=== PATIENT | male | born 2000 | race Caucasian/White ===

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

== ENCOUNTER 2022-01-31 01:47 | Emergency (ER) | payer SELFPAY ==
[~2022-01-31] VITALS: Ht 175.3 cm; Wt 94.1 kg
[~2022-01-31 01:47] MED LIST: ETOMIDATE 40 MG/20 ML VIAL. ONE; MIDAZOLAM HCL PF 5 MG/5 ML VIAL. ONE
[2022-01-31] MEDS ORDERED: NALOXONE 2 MG/2 ML DISP.SYRIN. IV ONE ×2 (02:30→03:00)
[2022-01-31] MEDS ORDERED: IV RINGERS SOLUTION,LACTATED 1,000 ML IV SCH (02:45)
[2022-01-31] MEDS ORDERED: PROPOFOL 100 ML IV PRN (02:45)
--- NOTE | 2022-01-31 02:53 | PHYS DOC ---
Past History Past Medical History: Asthma Additional Past Medical Histor: UNKNOWN Past Surgical History: Other Additional Past Surgical Histo: UNKNOWN Smoking: Cigarettes Alcohol Use: Occasionally Drug Use: None General Adult EDM: Chief Complaint: ALTERED MENTAL STATUS HPI: HPI: Non- resposive Patient is a 21 year old male who presents with marked decreased level of r responsiveness. Patient found down on a porch. Unknown length of time outside. Patient suspected to have an overdose of narcotics. Patient given 2 of Narcan nasally in the field as well as additional 4 given in the ED. Patient failed to have adequate response to return to level consciousness and not protecting airway. Patient intubated with 7 .5 ET tube. Patient then had OG placed decompress stomach. Patient placed on a propofol drip to complete CT of head and obtain chest x-ray. Patient appeared to have multiple IV stick méndez and old IV sticks. Considerable difficulty in obtaining IV and eventually had intraosseous right tib. Patient eventually obtained a left subclavian triple- lumen for IV access. Very limited history initially available on patient. Review of Systems: Review of Systems: Non-responsive Family History: Family History: Not currently available Current Medications: Current Meds: Current Medications Medications (Trade) Dose Ordered Sig/Benjamín Start Time Stop Time Status Last Admin Dose Admin Lactated Ringer's 1,000 ml @ 1,000 mls/hr Q1H 01/31/22 02:45 01/31/22 03:44 Naloxone HCl (Narcan) 2 mg 1X ONCE 01/31/22 02:30 01/31/22 02:31 DC 01/31/22 01:51 2 MG Propofol 100 ml @ 1.412 mls/ hr CONT PRN 01/31/22 02:45 Allergies: Allergies: Allergies Coded Allergies Type Severity Reaction Last Updated Verified dextromethorphan Allergy Mild 06/06/18 Yes Physical Exam: PE: Constitutional: in acute distress, non-toxic appearance. [] HENT: Normocephalic, atraumatic, bilateral external ears normal, oropharynx moist, no oral exudates, nose injected turbinates Eyes: PERRLA, constricted pupils, conjunctiva injected, no discharge. [] Neck: Normal range of motion, no tenderness, supple, no stridor. [] Trachea midline Cardiovascular: Tachycardia heart rate regular rhythm, no murmur [] Lungs & Thorax: Bilateral breath sounds rhonchi and crackles in both lung ace on auscultation [] Abdomen: Bowel sounds decreased, soft, no tenderness, no masses, no pulsatile masses. [] Circumcised male Skin: Warm, cold, decreased capillary refill toes and fingers, no erythema, no rash. Tattoos. Appeared to have IV track méndez Back: No tenderness, no CVA tenderness. [] Extremities: No tenderness, no cyanosis, no clubbing, ROM intact, no edema. [] Neurologic: Responds only to pain,, did appear to move all extremities with noxious stimuli, no gag reflex Current Patient Data: Vital Signs: Vital Signs Date Time Temp Pulse Resp B/P (MAP) Pulse Ox O2 Delivery O2 Flow Rate FiO2 01/31/22 02:09 73 19 175/104 (127) 95 Ventilator 01/31/22 01:59 15.0 01/31/22 01:47 95.5 EKG: EKG: My interpretation EKG shows a sinus rhythm at 87 bpm. Does have some contour changes anterior lateral area. Abnormal EKG. But no findings of acute STEMI with contralateral changes. Time of EKG is 331 hours [] Radiology/Procedures: Radiology/Procedures: [address] [address] IMAGING REPORT Signed PATIENT: BUD AMARAL ACCOUNT: [id number] : 2000 LOCATION: ER AGE: 21 SEX: M EXAM STATUS: REG ER ORD. PHYSICIAN: THOMAS GARCIA MD REASON: intubation, OG tube and central line placement. OD PROCEDURE: CHEST AP ONLY EXAMINATION: Chest radiograph. VIEWS: 1 COMPARISON: None. INDICATION:21 years, Male, Intubation, placement of enteric tube and central venous catheter. FINDINGS: Normal cardiomediastinal silhouette. Diffuse bilateral perihilar pulmonary infiltrates. No pleural effusion or pneumothorax. No acute osseous process. Endotracheal tube tip locates approximately 4.6 cm proximal to the benjamin. Enteric tube tip and sidehole seen within the stomach. Left central venous catheter terminates in the mid SVC IMPRESSION: 1. Endotracheal tube tip locates approximately 4.6 cm proximal to the benjamin. 2. Diffuse bilateral perihilar pulmonary infiltrates. Differential includes pulmonary edema versus atypical infection. Electronically signed by: Ramakrishna Killian MD (01/31/2022 3:40 AM) [facility] DICTATED AND SIGNED BY: RAMAKRISHNA KILLIAN MD DATE: 01/31/22337 CC: THOMAS GARCIA MD; PCP,UNKNOWN ~MTH0 0 [][place] [address] IMAGING REPORT Signed PATIENT: BUD AMARAL ACCOUNT: [id number] : 2000 LOCATION: ER AGE: 21 SEX: M EXAM STATUS: REG ER ORD. PHYSICIAN: THOMAS GARCIA MD REASON: OD, Mental status change PROCEDURE: CT HEAD AND CERVICAL SPINE WO EXAMINATION: CT head and cervical spine without IV contrast. INDICATION:21 years, Male, mental status change. COMPARISON: None TECHNIQUE: Spiral acquisition of contiguous images from the skull base to the vertex were obtained. CT of the cervical spine was obtained using contiguous spiral imaging from the skull base to the upper thoracic level. Sagittal and coronal 2D reformatted series were provided by the technologist. Soft tissue and bone window algorithms were reviewed. Exposure: One or more of the following individualized dose reduction techniques were utilized for this examination: 1. Automated exposure control 2. Adjustment of the mA and/or kV according to patient size 3. Use of iterative reconstruction technique. FINDINGS: Suboptimal exam due to motion artifact. CT HEAD: Neither mass, midline shift, intracranial hemorrhage, acute/subacute ischemic changes, nor extraaxial fluid collections are seen. The paranasal sinuses, mastoid air cells, and middle ears are clear. The orbital contents appear within normal limits. CT CERVICAL SPINE: Anatomic alignment of the cervical spine is maintained. Neither fracture, subluxation, nor traumatic spondylolisthesis is seen. The vertebral body heights and intervertebral disk spaces are preserved. There is no evidence of a large intraspinal hematoma. The prevertebral and paravertebral soft tissues are within normal limits. Partially visualized endotracheal and enteric tubes. IMPRESSION: 1. Suboptimal exam due to motion artifact. 2. No acute intracranial abnormality. 3. No acute fracture of the cervical spine. Electronically signed by: Ramakrishna Killian MD (01/31/2022 3:38 AM) [facility] DICTATED AND SIGNED BY: RAMAKRISHNA KILLIAN MD DATE: 01/31/22 0334 CC: THOMAS GARCIA MD; PCP,UNKNOWN ~MTH0 0 Heart Score: C/O Chest Pain: N/A HEART Score for Chest Pain: HEART Score for Chest Pain Response (Comments) Value History Moderately Suspicious 1 ECG Nonspecific Repolarizatio 1 Age < 45 0 Risk Factors 1 or 2 Risk Factors 1 Troponin < Normal Limit 0 Total 3 Risk Factors: Risk Factors: DM, Current or recent (<one month) smoker, HTN, HLP, family history of CAD, obesity. Risk Scores: Score 0 - 3: 2.5% MACE over next 6 weeks - Discharge Home Score 4 - 6: 20.3% MACE over next 6 weeks - Admit for Clinical Observation Score 7 - 10: 72.7% MACE over next 6 weeks - Early Invasive Strategies Course & Med Decision Making: Course & Med Decision Making Pertinent Labs and Imaging studies reviewed. (See chart for details) Procedure note-s IO placed by nursing Rt tibial plateau with return of blood. Intubation-patient not protecting airway and appears to have copious amount of pulmonary edema. Need to secure airway to obtain further x-rays and CT. Patient given 100 mg of succinylcholine and 20 g of etomidate and interosseous access. Use of videoscope 7.5 ET tube placed at 24 cm at teeth. First attempt unable to visualize airway required additional suctioning. Was able to place ET tube on second attempt. ET tube tube secured with tube barber and CO2 return. ET required suction.. Breath sounds both apexes. No breath sounds over st omach. OG then placed with return of gastric fluids. Central line -need for IV access and lab draws. Multiple attempts for p eripheral lines unsuccessful by nursing. Patient left subclavian prepped with kit prep. Sterile drape, mask, gloves-a triple-lumen placed by Seldinger technique left subclavian with return of blood all [address] with Biopatch and then covered with OpSite. Post xray show adequate placement and no pneumothorax. Patient placed on propofol drip for sedation-and vent management. Pt.did require repeat dose of Versed 5 and additional succinylcholine 100, propofol to aid in obtaining CT and chest x-ray. Critical care 90 minutes charting vent management. Does not include procedures IO, OG, intubation, central line placement or Christopher placement Discussed presentation, testing and tx. plan with Dr. Payne- Transfer to [facility] his service Impression: 1. Acute Mental Status Change 2. Respiratory Failure 3. Polysubstance abuse-UDS. Positive for methamphetamine, marijuana ho wever(overall presentation consistent with street fentanyl overdose) Father of pt. eventually located-advised that no contact with son for over 5 months except called 2 or 3 days ago but then never recalled. Advised his son had a hx of polysubstance abuse. [] Dragon Disclaimer: Dragon Disclaimer: This electronic medical record was generated, in whole or in part, using a voice recognition dictation system. Departure Departure: Referrals: PCP,UNKNOWN (PCP) [place] Disclaimer This chart was dictated in whole or in part using Voice Recognition software in a busy, high-work load, and often noisy Emergency Department environment. It may contain unintended and wholly unrecognized errors or omissions. Dragon Disclaimer This chart was dictated in whole or in part using Voice Recognition software in a busy, high-work load, and often noisy Emergency Department environment. It may contain unintended and wholly unrecognized errors or omissions. THOMAS GARCIA MD Jan 31, 2022 02:53
[2022-01-31 02:59] LABS: BASO # 0.2 x10^3/uL (0.0-0.2); BASO % 1 % (0-3); EOS # 0.3 x10^3/uL (0.0-0.7); EOS % 3 % (0-3); HEMATOCRIT 45.7 % (39.0-53.0); HEMOGLOBIN 14.9 g/dL (13.0-17.5); LYMPH # 3.7 x10^3/uL (1.0-4.8); LYMPH % 29 % (24-48); MEAN CORPUSCULAR HEMOGLOBIN 31 pg (25-35); MEAN CORPUSCULAR HGB CONC 33 g/dL (31-37); MEAN CORPUSCULAR VOLUME 94 fL (79-100); MONO # 0.8 x10^3/uL (0.0-1.1); MONO % 6 % (0-9); NEUT # 7.7 x10^3uL (1.8-7.7); NEUT % 61 % (31-73); PLATELET COUNT 343 x10^3/uL (140-400); RED BLOOD COUNT 4.86 x10^6/uL (4.30-5.70); RED CELL DISTRIBUTION WIDTH 14.3 % (11.5-14.5); WHITE BLOOD COUNT 12.6 x10^3/uL (4.0-11.0)
[2022-01-31 03:10] LABS: CALCIUM 8.4 mg/dL (8.5-10.1); CREATININE 0.8 mg/dL (0.7-1.3); GFR 120.9; POTASSIUM 4.7 mmol/L (3.5-5.1)
[2022-01-31 03:14] LABS: INFLUENZA A PATIENT NEGATIVE (NEGATIVE); INFLUENZA B PATIENT NEGATIVE (NEGATIVE)
[2022-01-31 03:15] LABS: ALBUMIN 3.9 g/dL (3.4-5.0); ALBUMIN/GLOBULIN RATIO 1.2 (1.0-1.7); TOTAL BILIRUBIN 0.2 mg/dL (0.2-1.0); TOTAL PROTEIN 7.2 g/dL (6.4-8.2)
[2022-01-31 03:19] LABS: ALBUMIN 3.9 g/dL (3.4-5.0); DIRECT BILIRUBIN 0.1 mg/dL (0.0-0.2); MAGNESIUM 2.6 mg/dL (1.8-2.4); TOTAL BILIRUBIN 0.2 mg/dL (0.2-1.0); TOTAL PROTEIN 7.2 g/dL (6.4-8.2)
[2022-01-31 03:19] LABS: BACTERIA,URINE FEW /HPF (0-FEW); CLARITY,URINE CLEAR; COLOR,URINE YELLOW; GLUCOSE,URINE 500 mg/dL (NEG); NITRITE,URINE NEG (NEG); UROBILINOGEN,URINE 0.2 mg/dL (0.2 mg/dL)
[2022-01-31 03:20] LABS: HYALINE CASTS, URINE MOD /HPF; SQUAMOUS EPITHELIAL CELL,UR FEW /LPF
--- NOTE | 2022-01-31 03:41 | RAD ---
EXAMINATION: CT head and cervical spine without IV contrast. INDICATION:21 years, Male, mental status change. COMPARISON: None TECHNIQUE: Spiral acquisition of contiguous images from the skull base to the vertex were obtained. C T of the cervical spine was obtained using contiguous spiral imaging from the skull base to the upper thoracic level. Sagittal and coronal 2D reformatted series were provided by the technologist. Soft t issue and bone window algorithms were reviewed. Exposure: One or more of the following individualized dose reduction techniques were utilized for thi s examination: 1. Automated exposure control 2. Adjustment of the mA and/or kV according to patient size 3. Use of iterative reconstruction technique. FINDINGS: Suboptimal exam due to motion artifact. CT HEAD: Neither mass, midline shift, intracranial hemorrhage, acute/subacute ischemic changes, nor extraaxial fluid collections are seen. The paranasal sinuses, mastoid air cells, and middle ears are clear. Th e orbital contents appear within normal limits. CT CERVICAL SPINE: Anatomic alignment of the cervical spine is maintained. Neither fracture, subluxation, nor traumatic spondylolisthesis is seen. The vertebral body heights and intervertebral disk spaces are preserved. T here is no evidence of a large intraspinal hematoma. The prevertebral and paravertebral soft tissues are within normal limits. Partially visualized endotracheal and enteric tubes. IMPRESSION: 1. Suboptimal exam due to motion artifact. 2. No acute intracranial abnormality. 3. No acute fracture of the cervical spine. Electronically signed by: Diana Killian MD (01/31/2022 3:38 AM) [facility]
--- NOTE | 2022-01-31 03:43 | RAD ---
EXAMINATION: Chest radiograph. VIEWS: 1 COMPARISON: None. INDICATION:21 years, Male, Intubation, placement of enteric tube and central venous catheter. FINDINGS: Normal cardiomediastinal silhouette. Diffuse bilateral perihilar pulmonary infiltrates. No pleural ef fusion or pneumothorax. No acute osseous process. Endotracheal tube tip locates approximately 4.6 cm proximal to the benjamin. Enteric tube tip and sidehole seen within the stomach. Left central venous ca theter terminates in the mid SVC IMPRESSION: 1. Endotracheal tube tip locates approximately 4.6 cm proximal to the benjamin. 2. Diffuse bilateral perihilar pulmonary infiltrates. Differential includes pulmonary edema versus a typical infection. Electronically signed by: Diana Killian MD (01/31/2022 3:40 AM) [facility]
[2022-01-31 03:52] LABS: BARBITURATES NEG (NEG); BENZODIAZEPINES POS (NEG); CANNABINOIDS POS (NEG); COCAINE NEG (NEG); METHADONE NEG (NEG); OPIATES NEG (NEG); PHENCYCLIDINE NEG (NEG)
[2022-01-31 03:53] LABS: AMPHETAMINE/METHAMPHETAMINE POS (NEG)
[2022-01-31 04:53] VITALS: BP 129/80
[2022-01-31] MEDS ORDERED: MIDAZOLAM HCL PF 5 MG/5 ML VIAL. IV ONE (05:15)
--- NOTE | 2022-01-31 05:59 | EKG ---
[address] [address] Test Date: 2022-01-31 Test Time: 03:31:32 Pat Name: BUD AMARAL Department: Room: Gender: M Electrician Front: : 2000 Requested By: THOMAS GARCIA Order Number: [id number] Reading MD: Jose Giang Measurements Intervals [place] Rate: 87 P: 32 IA: 146 QRS: 83 QRSD: 106 T: 42 QT: 382 QTc: 460 Interpretive Statements SINUS RHYTHM QRS(T) CONTOUR ABNORMALITY CONSIDER ANTEROLATERAL MYOCARDIAL DAMAGE POSSIBLY ABNORMAL ECG RI6.01 No previous ECG available for comparison Electronically Signed On 01-31-2022 18:28:38 [address] [employer] by Jose Giang
== END 2022-01-31 04:15 | disposition short-term general hospital (02) ==
LOC: ER 01:47
DX: J96.90 Respiratory failure, unspecified, unspecified whether with hypoxia or hypercapnia (principal); R41.82 Altered mental status, unspecified; F19.10 Other psychoactive substance abuse, uncomplicated; F15.10 Other stimulant abuse, uncomplicated; F12.10 Cannabis abuse, uncomplicated; J45.909 Unspecified asthma, uncomplicated; F17.210 Nicotine dependence, cigarettes, uncomplicated; Z20.822 Contact with and (suspected) exposure to COVID-19; Z88.8 Allergy status to other drugs, medicaments and biological substances
CPT/HCPCS: 31500; 36415; 36556; 36680; 51702; 70450; 71045; 72125; 80053; 80076; 80307; 81001; 82550; 82803; 83690; 83735; 83880; 84443; 84484; 85025; 85610; 85730; 87086; 87428; 93005; 96361; 96374; 99291; 99292; C9803; J2250; J2310; J2704; J7120; U0003